=== PATIENT | male | born 1970 | race Caucasian/White ===

== ENCOUNTER 2020-06-26 16:37 | Inpatient (IN) | payer MEDICARE, MEDICAID ==
[~2020-06-26] VITALS: Ht 177.8 cm; Wt 102.2 kg
--- NOTE | 2020-06-26 17:22 | NUR ---
customs director note: Pt to room from lobby.
[2020-06-26] MEDS ORDERED: SODIUM CHLORIDE FLUSH 10ML SYR IVF ONE (18:00)
[2020-06-26] MEDS ORDERED: LORazepam 2 MG/ML, 1ML IVPush ONE (18:00)
[2020-06-26] MEDS ORDERED: methylPREDNISolone SOD SUCC 125 MG/2 ML IV ONE (18:00)
[2020-06-26] MEDS ORDERED: ASPIRIN 81 MG TABLET CHEW PO ONE (18:00)
[2020-06-26] MEDS ORDERED: LORazepam 2 MG/ML, 1ML ONE (18:05)
[2020-06-26] MEDS ORDERED: ASPIRIN 81 MG TABLET CHEW ONE (18:05)
[2020-06-26] MEDS ORDERED: methylPREDNISolone SOD SUCC 125 MG/2 ML ONE (18:05)
--- NOTE | 2020-06-26 18:22 | NUR ---
TROPONIN NOTED IN COMMENT SECTION. THIS RN DIDN'T TAKE RPT ON CRITICAL LAB. CRITICAL CHARTED AND PROVIDER AWARE.
[2020-06-26 18:40] LABS: BASOPHILS % (AUTO) 1 % (0-1); EOSINOPHILS % (AUTO) 1 % (1-7); LYMPHOCYTES % (AUTO) 10 % (22-44); MEAN CORPUSCULAR HEMOGLOBIN 29.6 pg (27.5-34.5); MEAN CORPUSCULAR HGB CONC 33.7 g/dL (33.2-36.2); MEAN PLATELET VOLUME 7.7 fL (7.4-10.4); MONOCYTES % (AUTO) 9 % (2-9); NEUTROPHILS % (AUTO) 80 % (42-75); PLATELET COUNT 364 x10^3/uL (130-400); RED BLOOD COUNT 4.54 x10^6/uL (4.38-5.82); RED CELL DISTRIBUTION WIDTH 16.8 % (9.4-14.8)
[2020-06-26 18:41] LABS: MD NO
--- NOTE | 2020-06-26 18:41 | NUR ---
MULTIPLE ATTEMPTS TO START PIV WITH NO SUCCESS. OTHER RN WILL ATTEMPT.
[2020-06-26 18:52] LABS: ALBUMIN 3.7 g/dL (3.4-5.0); ANION GAP 8 mmol/L (5-15); CALCIUM 8.8 mg/dL (8.5-10.1); CHLORIDE 105 mmol/L (98-107); CREATININE 1.25 mg/dL (0.7-1.3)
--- NOTE | 2020-06-26 18:55 | NUR ---
TASK RN, PIV PLACED IN RIGHT WRIST, PRIMARY RN UPDATED.
[2020-06-26 19:04] LABS: TROPONIN I 0.239 ng/mL (0.000-0.045)
--- NOTE | 2020-06-26 19:35 | NUR ---
ERP AT BEDSIDE. PT TO BE ADMITTED.
[2020-06-26] MEDS ORDERED: FUROSEMIDE 40 MG/4 ML ONE (19:44)
[2020-06-26] MEDS ORDERED: NITROGLYCERIN OINT 2%, 1GM TP ONE ×2 (19:44→20:00)
--- NOTE | 2020-06-26 19:45 | NUR ---
PT RESTING WITH EYES CLOSED. 2L O2 PLACED FOR 02 SAT 88%. MEDICATED PER JUL.
[2020-06-26] MEDS ORDERED: FUROSEMIDE 40 MG/4 ML IVPush ONE (20:00)
[2020-06-26] MEDS ORDERED: NITROGLYCERIN/D5W PMX 250 ML ONE (20:12)
[2020-06-26] MEDS: NITROGLYCERIN/D5W PMX 250 ML IV PRN ×5 (20:23→21:22)
--- NOTE | 2020-06-26 21:01 | NUR ---
MOBLEY PLACED PER PROVIDER ORDER. PT JUMPING FROM BED MULTIPLE TIMES WITHOUT CALLING FOR HELP. ACCURATE I&O'S OBTAINED D/T PT'S CRITICAL STATUS.
--- NOTE | 2020-06-26 21:31 | NUR ---
PT SLEEPING IN BED, ROUSABLE TO TOUCH, VSS
--- NOTE | 2020-06-26 21:38 | NUR ---
APPROX 1300 URINE OUT AT THIS TIME, VSS
[2020-06-26] MEDS ORDERED: ACETAMINOPHEN 325 MG TABLET PO PRN (22:00)
[2020-06-26] MEDS ORDERED: DOCUSATE 100 MG CAPSULE PO PRN (22:00)
[2020-06-26] MEDS ORDERED: NITROGLYCERIN/D5W PMX 250 ML IV PRN (22:00)
[2020-06-26] MEDS ORDERED: HEPARIN 5,000 UNITS/ML, 1ML SQ SCH (22:00)
[2020-06-26 22:09] LABS: AMPHETAMINE SCREEN, URINE Positive (Negative); BARBITURATE SCREEN, URINE Negative (Negative); BENZODIAZEPINE SCREEN, URINE Negative (Negative); CANNABINOID SCREEN, URINE Positive (Negative); COCAINE SCREEN, URINE Negative (Negative); METHADONE SCREEN, URINE Negative (Negative); OPIATE SCREEN, URINE Negative (Negative)
--- NOTE | 2020-06-26 22:20 | NUR ---
SPOKE WITH DR. VILLATORO. PT'S MAP IS HOVERING AROUND 130'S, ORDER STATES TO TITRATE DRIP TO MAP OF 140. PER DR. VILLATORO SHE STATES TO DROP FROM 200 MCG TO 150 MCG AND IF PT CAN STAY AROUND 140'S OVER NIGHT THEY CAN START TO WEAN HIM OFF DURING DAY SHIFT.
--- NOTE | 2020-06-26 22:52 | NUR ---
EMPTIED 2000 ML FROM [facility]
--- NOTE | 2020-06-26 23:25 | NUR ---
REPORT GIVEN TO ROBEL KEENE
[2020-06-27 02:33] LABS: BASOPHILS % (AUTO) 0 % (0-1); EOSINOPHILS % (AUTO) 0 % (1-7); LYMPHOCYTES % (AUTO) 8 % (22-44); MEAN CORPUSCULAR HEMOGLOBIN 29.5 pg (27.5-34.5); MEAN CORPUSCULAR HGB CONC 33.5 g/dL (33.2-36.2); MEAN PLATELET VOLUME 7.5 fL (7.4-10.4); MONOCYTES % (AUTO) 2 % (2-9); NEUTROPHILS % (AUTO) 90 % (42-75); PLATELET COUNT 342 x10^3/uL (130-400); RED BLOOD COUNT 4.79 x10^6/uL (4.38-5.82); RED CELL DISTRIBUTION WIDTH 16.7 % (9.4-14.8)
[2020-06-27 02:50] LABS: ANION GAP 11 mmol/L (5-15); CALCIUM 8.9 mg/dL (8.5-10.1); CHLORIDE 101 mmol/L (98-107); CREATININE 1.17 mg/dL (0.7-1.3)
[2020-06-27 02:54] LABS: TROPONIN I 0.203 ng/mL (0.000-0.045)
[2020-06-27 03:11] LABS: MD SCAN
[2020-06-27] MEDS: ENOXAPARIN 40 MG/0.4 ML SQ SCH (07:30)
[2020-06-27] MEDS ORDERED: POTASSIUM CHLORIDE 20 MEQ PACKET PO SCH (08:00)
[2020-06-27] MEDS: ASPIRIN 81 MG TABLET EC PO SCH (08:59)
[2020-06-27] MEDS: CARVEDILOL 6.25 MG TABLET PO SCH ×2 (08:59→17:01)
[2020-06-27] MEDS: LISINOPRIL 10 MG TABLET PO SCH ×2 (09:00→20:58)
[2020-06-27] MEDS: FUROSEMIDE 40 MG/4 ML IV SCH ×2 (09:00→17:02)
[2020-06-27] MEDS ORDERED: FUROSEMIDE 40 MG/4 ML IV SCH (09:00)
[2020-06-27] MEDS: POTASSIUM CHLORIDE 20 MEQ PACKET PO SCH ×2 (09:08→17:07)
[2020-06-27 09:14] LABS: AMPHETAMINE SCREEN, URINE Positive (Negative); BARBITURATE SCREEN, URINE Negative (Negative); BENZODIAZEPINE SCREEN, URINE Negative (Negative); CANNABINOID SCREEN, URINE Positive (Negative); COCAINE SCREEN, URINE Negative (Negative); METHADONE SCREEN, URINE Negative (Negative); OPIATE SCREEN, URINE Negative (Negative)
[2020-06-27] MEDS ORDERED: NICOTINE 21 MG/24 HR PATCH.TD24 ONE (16:57)
[2020-06-27] MEDS: NICOTINE 21 MG/24 HR PATCH.TD24 TD SCH (17:02)
[2020-06-27 19:01] VITALS: BP 137/92
[2020-06-28 00:12] VITALS: BP 148/89
[2020-06-28] MEDS ORDERED: MELATONIN 5 MG TABLET PO PRN (01:00)
[2020-06-28] MEDS: BENZONATATE 100 MG CAPSULE PO PRN ×2 (03:47→20:45)
[2020-06-28 05:15] LABS: CHOL/HDL RATIO 7.1; LDL/HDL RATIO 4.7 (0.5-3.0)
[2020-06-28 06:11] VITALS: BP 147/88
[2020-06-28] MEDS: ASPIRIN 81 MG TABLET EC PO SCH (06:12)
[2020-06-28] MEDS: CARVEDILOL 6.25 MG TABLET PO SCH (06:12)
[2020-06-28 06:41] VITALS: BP 136/97
[2020-06-28] MEDS ORDERED: REGADENOSON 0.4 MG/5 ML SYRINGE ONE (08:09)
[2020-06-28] MEDS: LISINOPRIL 10 MG TABLET PO SCH (10:41)
[2020-06-28] MEDS: ENOXAPARIN 40 MG/0.4 ML SQ SCH (10:42)
[2020-06-28 11:20] LABS: BASOPHILS % (AUTO) 0 % (0-1); EOSINOPHILS % (AUTO) 1 % (1-7); LYMPHOCYTES % (AUTO) 19 % (22-44); MEAN CORPUSCULAR HGB CONC 32.8 g/dL (33.2-36.2); MONOCYTES % (AUTO) 8 % (2-9); NEUTROPHILS % (AUTO) 72 % (42-75); PLATELET COUNT 415 x10^3/uL (130-400); RED BLOOD COUNT 5.01 x10^6/uL (4.38-5.82); RED CELL DISTRIBUTION WIDTH 16.6 % (9.4-14.8)
[2020-06-28 11:22] LABS: MD NO
[2020-06-28 11:25] LABS: ANION GAP 10 mmol/L (5-15); CALCIUM 9.2 mg/dL (8.5-10.1); CHLORIDE 102 mmol/L (98-107)
[2020-06-28 11:26] LABS: CREATININE 1.36 mg/dL (0.7-1.3)
[2020-06-28 12:12] VITALS: BP 155/96
[2020-06-28] MEDS: NICOTINE 21 MG/24 HR PATCH.TD24 TD SCH (17:19)
[2020-06-28] MEDS: CARVEDILOL 12.5 MG TABLET PO SCH (17:19)
[2020-06-28 19:40] VITALS: BP 133/84
[2020-06-28] MEDS ORDERED: QUETIAPINE 25MG TABLET PO PRN (20:30)
[2020-06-28 21:29] VITALS: BP 118/71
[2020-06-28] MEDS ORDERED: TEMAZEPAM 15 MG CAPSULE PO PRN (23:30)
[2020-06-29 02:03] VITALS: BP 135/84
[2020-06-29 06:43] VITALS: BP 128/86
[2020-06-29] MEDS: ASPIRIN 81 MG TABLET EC PO SCH (06:44)
[2020-06-29] MEDS: CARVEDILOL 12.5 MG TABLET PO SCH (06:44)
[2020-06-29] MEDS: ENOXAPARIN 40 MG/0.4 ML SQ SCH (07:30)
[2020-06-29 07:45] VITALS: BP 133/89
[2020-06-29 07:55] LABS: BASOPHILS % (AUTO) 0 % (0-1); EOSINOPHILS % (AUTO) 2 % (1-7); LYMPHOCYTES % (AUTO) 18 % (22-44); MEAN CORPUSCULAR HGB CONC 33.7 g/dL (33.2-36.2); MEAN PLATELET VOLUME 7.5 fL (7.4-10.4); MONOCYTES % (AUTO) 11 % (2-9); NEUTROPHILS % (AUTO) 69 % (42-75); PLATELET COUNT 349 x10^3/uL (130-400); RED BLOOD COUNT 5.07 x10^6/uL (4.38-5.82); RED CELL DISTRIBUTION WIDTH 17.1 % (9.4-14.8)
[2020-06-29 08:04] LABS: ANION GAP 6 mmol/L (5-15); CHLORIDE 104 mmol/L (98-107); CREATININE 1.24 mg/dL (0.7-1.3)
[2020-06-29 08:46] LABS: MD SCAN
[2020-06-29] MEDS ORDERED: FUROSEMIDE 40 MG/4 ML IV SCH (09:00)
[2020-06-29] MEDS ORDERED: LISINOPRIL 10 MG TABLET PO SCH (09:00)
[2020-06-29] MEDS ORDERED: ASPI81TA45 PO (11:14)
[2020-06-29] MEDS ORDERED: LISI-167 PO (11:14)
[2020-06-29] MEDS ORDERED: FURO40TA6 PO (11:14)
[2020-06-29] MEDS ORDERED: CARV25TA12 PO (11:14)
[2020-06-29] MEDS ORDERED: CARVEDILOL 25 MG TABLET PO SCH (18:00)
== END 2020-06-29 13:20 | disposition home or self-care (01) | DRG 291 ==
LOC: ED 19:00 → EDIP 22:35 → CCU 23:36 → 5SO 06-27 14:10 → DCLOUNGE 06-29 13:08
PROVIDERS: ADMIT Family Medicine; ATTEND Internal Medicine
DX: I11.0 Hypertensive heart disease with heart failure (principal); G92 Toxic encephalopathy; J96.01 Acute respiratory failure with hypoxia; N17.9 Acute kidney failure, unspecified; I50.23 Acute on chronic systolic (congestive) heart failure; I42.8 Other cardiomyopathies; I27.81 Cor pulmonale (chronic); I16.0 Hypertensive urgency; E87.6 Hypokalemia; F19.10 Other psychoactive substance abuse, uncomplicated; I27.29 Other secondary pulmonary hypertension; Z79.899 Other long term (current) drug therapy
CPT/HCPCS: 36415; 36600; 70450; 71045; 74021; 78452; 80048; 80061; 80074; 80307; 82040; 82803; 83735; 83880; 84443; 84484; 85025; 87081; 87806; 93005; 93017; 93306; 93356; 96374; 96375; 96376; 99291; G0378; J1644; J1650; J1940; J2785; A9502; C9898; G0475; J2060; J2930